=== PATIENT | male | born 1970 | race Caucasian/White ===

== ENCOUNTER 2017-11-26 00:03 | Emergency (ER) | payer OTHER ==
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
[2017-11-26] MEDS ORDERED: LET GEL TOPICAL 1 EA SYR TP ONE (00:33)
[2017-11-26 02:08] VITALS: BP 128/83
== END 2017-11-26 02:06 | disposition home or self-care (01) ==
DX: S80.02XA Contusion of left knee, initial encounter (principal); S80.212A Abrasion, left knee, initial encounter; S40.812A Abrasion of left upper arm, initial encounter; V18.0XXA Pedal cycle driver injured in noncollision transport accident in nontraffic accident, initial encounter; Y92.410 Unspecified street and highway as the place of occurrence of the external cause; Y99.8 Other external cause status; Y93.55 Activity, bike riding
CPT/HCPCS: L1830